=== PATIENT | female | born 1980 | race Caucasian/White ===

== ENCOUNTER 2017-02-26 04:43 | Emergency (ER) | payer SELFPAY ==
[~2017-02-26] VITALS: Ht 172.7 cm; Wt 66.5 kg
[~2017-02-26 04:43] MED LIST: ACYC-113 PO; ESCI10TA10 PO
[2017-02-26 04:44] VITALS: BP 136/95
[2017-02-26] MEDS ORDERED: DEXAMETHASONE 4 MG/ML, 5ML ONE (05:13)
[2017-02-26] MEDS ORDERED: IBUPROFEN 200 MG TABLET ONE (05:19)
[2017-02-26] MEDS ORDERED: ESCI10TA10 PO (05:23)
[2017-02-26] MEDS ORDERED: IBUPROFEN 200 MG TABLET PO ONE (05:30)
[2017-02-26] MEDS ORDERED: DEXAMETHASONE 4 MG/ML, 1ML IM ONE (05:30)
[2017-02-26] MEDS ORDERED: HYDROcodone/APAP 5/325 TABLET PO ONE (05:30)
[2017-02-26] MEDS ORDERED: BICILLIN-LA 1,200,000 UNITS/2 ML IM ONE (07:00)
== END 2017-02-26 07:25 | disposition home or self-care (01) ==
LOC: ED 07:19
DX: J02.0 Streptococcal pharyngitis (principal)
CPT/HCPCS: 87880; 96372; 99284; J0561; J1100

== ENCOUNTER 2017-06-21 08:01 | Emergency (ER) | payer SELFPAY ==
[~2017-06-21] VITALS: Ht 172.7 cm; Wt 67.6 kg
[2017-06-21 08:03] VITALS: BP 116/75
[2017-06-21] MEDS ORDERED: DEXAMETHASONE 4 MG/ML, 1ML PO ONE (08:30)
[2017-06-21] MEDS ORDERED: HYDROcodone/APAP 7.5-325MG/15ML UDC PO ONE (08:30)
[2017-06-21] MEDS ORDERED: BICILLIN-LA 1,200,000 UNITS/2 ML IM ONE (08:30)
[2017-06-21] MEDS ORDERED: HYDROcodone/APAP 7.5-325MG/15ML UDC ONE (08:31)
[2017-06-21] MEDS ORDERED: DEXAMETHASONE 4 MG/ML, 5ML ONE (08:31)
== END 2017-06-21 08:59 | disposition home or self-care (01) ==
LOC: ED 08:55
DX: J02.0 Streptococcal pharyngitis (principal); J03.90 Acute tonsillitis, unspecified; F41.9 Anxiety disorder, unspecified; F17.200 Nicotine dependence, unspecified, uncomplicated
CPT/HCPCS: 96372; 99283; J0561; J1100

== ENCOUNTER 2017-09-22 11:21 | Emergency (ER) | payer OTHER ==
[~2017-09-22] VITALS: Ht 172.7 cm; Wt 66.0 kg
[2017-09-22 11:24] VITALS: BP 120/74
[2017-09-22] MEDS ORDERED: DEXAMETHASONE 4 MG TABLET PO ONE (12:00)
[2017-09-22] MEDS ORDERED: BICILLIN-LA 1,200,000 UNITS/2 ML IM ONE (12:00)
[2017-09-22] MEDS ORDERED: DEXAMETHASONE 4 MG TABLET ONE ×2 (12:01)
== END 2017-09-22 12:35 | disposition home or self-care (01) ==
LOC: ED 12:29
DX: J02.9 Acute pharyngitis, unspecified (principal); Z87.891 Personal history of nicotine dependence
CPT/HCPCS: 96372; 99283; J0561

== ENCOUNTER 2018-01-01 13:36 | Emergency (ER) | payer SELFPAY ==
[~2018-01-01] VITALS: Ht 172.7 cm; Wt 66.9 kg
[2018-01-01 13:47] VITALS: BP 115/80
== END 2018-01-01 14:17 | disposition home or self-care (01) ==
LOC: ED 13:50
DX: S61.304A Unspecified open wound of right ring finger with damage to nail, initial encounter (principal); X58.XXXA Exposure to other specified factors, initial encounter; Y93.89 Activity, other specified; Y92.89 Other specified places as the place of occurrence of the external cause; Y99.8 Other external cause status
CPT/HCPCS: 99283

== ENCOUNTER 2018-01-10 18:07 | Emergency (ER) | payer OTHER ==
[~2018-01-10] VITALS: Ht 172.7 cm; Wt 67.8 kg
[2018-01-10 18:11] VITALS: BP 135/84
[2018-01-10] MEDS ORDERED: PROPARACAINE OPHTH 0.5%, 15ML ONE (18:33)
[2018-01-10] MEDS ORDERED: FLUORESCEIN OPHTHALMIC 1 MG STRIP ONE (18:33)
== END 2018-01-10 19:12 | disposition home or self-care (01) ==
LOC: ED 19:00
DX: H10.022 Other mucopurulent conjunctivitis, left eye (principal); F41.9 Anxiety disorder, unspecified
CPT/HCPCS: 99283

== ENCOUNTER 2018-08-15 11:40 | Emergency (ER) | payer MEDICAID ==
[~2018-08-15] VITALS: Ht 172.7 cm; Wt 64.0 kg
[2018-08-15 11:50] VITALS: BP 129/66
[2018-08-15] MEDS ORDERED: DEXAMETHASONE 4 MG/ML, 1ML PO ONE (12:00)
[2018-08-15 13:50] LABS: CULTURE INDICATED? YES; MICROSCOPIC INDICATED
[2018-08-15 13:51] LABS: HCG UR SG 1.015 (1.003-1.030)
[2018-08-15] MEDS ORDERED: DEXAMETHASONE 4 MG/ML, 5ML ONE (14:49)
== END 2018-08-15 14:58 | disposition home or self-care (01) ==
LOC: ED 13:00
DX: N30.01 Acute cystitis with hematuria (principal); J02.8 Acute pharyngitis due to other specified organisms; B97.89 Other viral agents as the cause of diseases classified elsewhere; N89.8 Other specified noninflammatory disorders of vagina; F17.200 Nicotine dependence, unspecified, uncomplicated
CPT/HCPCS: 81001; 81025; 87077; 87081; 87086; 87147; 87186; 87880; 99284

== ENCOUNTER 2018-09-14 14:49 | Emergency (ER) | payer MEDICAID ==
[~2018-09-14] VITALS: Ht 172.7 cm; Wt 64.0 kg
[2018-09-14 14:50] VITALS: BP 115/75
[2018-09-14] MEDS ORDERED: DEXAMETHASONE 4 MG/ML, 1ML PO ONE (15:00)
[2018-09-14] MEDS ORDERED: DEXAMETHASONE 4 MG/ML, 1ML ONE (15:03)
== END 2018-09-14 15:42 | disposition home or self-care (01) ==
LOC: ED 15:40
DX: J02.8 Acute pharyngitis due to other specified organisms (principal); B34.9 Viral infection, unspecified; F17.200 Nicotine dependence, unspecified, uncomplicated; F41.1 Generalized anxiety disorder
CPT/HCPCS: 71046; 87081; 87880; 99284; J1100

== ENCOUNTER 2019-05-08 14:27 | Emergency (ER) | payer MEDICAID ==
[~2019-05-08] VITALS: Ht 172.7 cm; Wt 65.0 kg
[2019-05-08 19:10] VITALS: BP 124/79
== END 2019-05-08 19:14 | disposition home or self-care (01) ==
LOC: ED 16:08 → UNDOADMIN 17:16 → EDIP 17:16 → ED 19:14
DX: S02.31XA Fracture of orbital floor, right side, initial encounter for closed fracture (principal); F17.200 Nicotine dependence, unspecified, uncomplicated; Y04.0XXA Assault by unarmed brawl or fight, initial encounter; Y93.89 Activity, other specified; Y92.89 Other specified places as the place of occurrence of the external cause; Y99.8 Other external cause status
CPT/HCPCS: 70486; 99284

== ENCOUNTER 2019-12-24 17:49 | Emergency (ER) | payer SELFPAY ==
[~2019-12-24] VITALS: Ht 172.7 cm; Wt 66.3 kg
[2019-12-24 17:51] VITALS: BP 113/71
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
--- NOTE | 2019-12-24 18:08 | NUR ---
PT ALSO STATES RIGHT SHOULDER PAIN
--- NOTE | 2019-12-24 18:45 | NUR ---
REPORT TO TARIQ BARRAGAN
[2019-12-24 18:48] LABS: CULTURE INDICATED? YES; MICROSCOPIC INDICATED
== END 2019-12-24 19:32 | disposition home or self-care (01) ==
LOC: ED 18:30
DX: S16.1XXA Strain of muscle, fascia and tendon at neck level, initial encounter (principal); S00.83XA Contusion of other part of head, initial encounter; N30.00 Acute cystitis without hematuria; Y00.XXXA Assault by blunt object, initial encounter; Y93.89 Activity, other specified; Y92.488 Other paved roadways as the place of occurrence of the external cause; Y99.8 Other external cause status
CPT/HCPCS: 70450; 70486; 72125; 81001; 87077; 87086; 87186; 99285

== ENCOUNTER 2020-07-15 15:52 | Emergency (ER) | payer MEDICAID, OTHER ==
[~2020-07-15] VITALS: Ht 172.7 cm; Wt 70.8 kg
[2020-07-15 16:03] VITALS: BP 113/72
== END 2020-07-15 17:10 | disposition home or self-care (01) ==
LOC: ED 16:39
DX: T25.112A Burn of first degree of left ankle, initial encounter (principal); T31.0 Burns involving less than 10% of body surface; F17.200 Nicotine dependence, unspecified, uncomplicated; X08.8XXA Exposure to other specified smoke, fire and flames, initial encounter; Y93.89 Activity, other specified; Y92.89 Other specified places as the place of occurrence of the external cause; Y99.8 Other external cause status
CPT/HCPCS: 99283

== ENCOUNTER 2020-07-30 16:07 | Emergency (ER) | payer MEDICAID ==
[~2020-07-30] VITALS: Ht 171.4 cm; Wt 70.1 kg
[2020-07-30 16:14] VITALS: BP 110/65
== END 2020-07-30 16:55 | disposition home or self-care (01) ==
LOC: ED 16:48
DX: L03.211 Cellulitis of face (principal)
CPT/HCPCS: 99283

== ENCOUNTER 2021-05-31 18:14 | Emergency (ER) | payer MEDICAID ==
[~2021-05-31] VITALS: Ht 172.7 cm; Wt 81.1 kg
[~2021-05-31 18:14] MED LIST changes: -ACYC-113 PO; +ACYC200C13 PO
--- NOTE | 2021-05-31 21:36 | NUR ---
PT AMBULATED TO ROOM, NO ACUTE DISTRESS, RESTING COMFORTABLY IN BED, WAITING FOR MD.
--- NOTE | 2021-05-31 21:42 | NUR ---
pt c/o of not having medicatioons for past 3 weeks for bipolar, depression, and anxiety.
[2021-05-31 22:00] VITALS: BP 150/84
== END 2021-05-31 22:34 | disposition home or self-care (01) ==
LOC: ED 20:00
DX: F31.32 Bipolar disorder, current episode depressed, moderate (principal); F17.200 Nicotine dependence, unspecified, uncomplicated
CPT/HCPCS: 99281